=== PATIENT | female | born 1975 | race Two or more races ===

== ENCOUNTER 2022-09-19 14:54 | Outpatient (CLI) | payer OTHER | END 2022-09-19 15:09 | disposition home or self-care (01) | LOC: RAD 14:54 | PROVIDERS: ATTEND Colon & Rectal Surgery | DX: K59.09 Other constipation (principal) ==

== ENCOUNTER → 2022-11-25 11:36 | Outpatient (CLI) | payer OTHER | END | disposition home or self-care (01) | LOC: LAB 11:36 | PROVIDERS: ATTEND Colon & Rectal Surgery | DX: K59.02 Outlet dysfunction constipation (principal); K59.09 Other constipation ==

== ENCOUNTER 2022-11-28 07:00 | Inpatient (IN) | payer OTHER ==
[~2022-11-28] VITALS: Ht 170.2 cm; Wt 77.1 kg
[2022-12-07] MEDS ORDERED: PAIN RELIEF EX500 MG PO (12:32)
[2022-12-07] MEDS ORDERED: NEURONTIN300 MG PO (12:32)
== END 2022-12-07 15:28 | disposition home or self-care (01) | DRG 330 ==
LOC: O/R 12-03 06:20 → SURG 12-03 06:20 → SURH 12-03 07:00 → SURG 12-03 13:51 → SURH 12-03 21:15 → SURG 12-05 13:53
PROVIDERS: ADMIT Colon & Rectal Surgery; ATTEND Colon & Rectal Surgery
PROC: 0DBP4ZZ Excision of Rectum, Percutaneous Endoscopic Approach (ICD-10-PCS; 2022-12-03)
PROC: 0DJD8ZZ Inspection of Lower Intestinal Tract, Via Natural or Artificial Opening Endoscopic (ICD-10-PCS; 2022-12-03)
PROC: 0DTN4ZZ Resection of Sigmoid Colon, Percutaneous Endoscopic Approach (ICD-10-PCS; principal; 2022-12-03 21:15)
DX: K59.02 Outlet dysfunction constipation (principal); K57.20 Diverticulitis of large intestine with perforation and abscess without bleeding

== ENCOUNTER 2023-01-06 12:06 | Emergency (ER) | payer OTHER ==
[~2023-01-06] VITALS: Ht 170.2 cm; Wt 73.0 kg
[~2023-01-06 12:06] MED LIST: NEURONTIN300 MG PO; PAIN RELIEF EX500 MG PO
[2023-01-06] MEDS ORDERED: METRONIDAZOLE500 MG PO (18:12)
== END 2023-01-06 18:40 | disposition home or self-care (01) ==
LOC: ER 12:06
DX: K52.89 Other specified noninfective gastroenteritis and colitis (principal); R10.9 Unspecified abdominal pain; Z88.6 Allergy status to analgesic agent; Z88.8 Allergy status to other drugs, medicaments and biological substances

== ENCOUNTER 2023-02-26 14:08 | Emergency (ER) | payer OTHER ==
[~2023-02-26] VITALS: Ht 170.2 cm; Wt 68.9 kg
[~2023-02-26 14:08] MED LIST changes: +METRONIDAZOLE500 MG PO
== END 2023-02-27 07:23 | disposition home or self-care (01) ==
LOC: ER 14:08
DX: K92.1 Melena (principal); Z88.6 Allergy status to analgesic agent; Z88.8 Allergy status to other drugs, medicaments and biological substances; R53.1 Weakness

== ENCOUNTER 2023-03-04 06:30 | Day surgery (SDC) | payer OTHER | END 2023-03-04 12:55 | disposition home or self-care (01) | LOC: AMB-ENDOS 06:30 | PROVIDERS: ATTEND Colon & Rectal Surgery | DX: K29.60 Other gastritis without bleeding (principal); K62.4 Stenosis of anus and rectum; K44.9 Diaphragmatic hernia without obstruction or gangrene; K59.00 Constipation, unspecified; K59.02 Outlet dysfunction constipation; Z20.822 Contact with and (suspected) exposure to COVID-19; K29.70 Gastritis, unspecified, without bleeding; R19.5 Other fecal abnormalities; Z88.6 Allergy status to analgesic agent ==

== ENCOUNTER 2023-03-31 12:12 | Inpatient (IN) | payer OTHER ==
[~2023-03-31] VITALS: Ht 170.2 cm; Wt 67.6 kg
[2023-04-02] MEDS ORDERED: INTESTINEX680 M1 PO (09:52)
== END 2023-04-02 11:49 | disposition home or self-care (01) | DRG 390 ==
LOC: ER 12:12 → SURH 21:42
PROVIDERS: ADMIT Colon & Rectal Surgery; ATTEND Colon & Rectal Surgery
PROC: 0D7E8ZZ Dilation of Large Intestine, Via Natural or Artificial Opening Endoscopic (ICD-10-PCS; principal; 2023-04-02)
DX: K56.690 Other partial intestinal obstruction (principal); K59.09 Other constipation

== ENCOUNTER 2023-05-12 16:13 | Inpatient (IN) | payer OTHER ==
[~2023-05-12] VITALS: Ht 170.2 cm; Wt 0.5 kg
[~2023-05-12 16:13] MED LIST changes: +INTESTINEX680 M1 PO
--- NOTE | 2023-05-12 16:32 | NUR ---
SE RECIBE PTE FEMENINA DE 47Y ALERTA Y ORIENTADA EN LI OSMIN ESFERAS EN COMPANIA DE [place]. ESTA REFIERE MARIA LUISA TENIDO HX DE CIRUGIA DE COLON EL PASADO 2022. REFIERE QUE EL (COLONRECTAL) LE SHELL REALIZADO DOS DILATACION PORQUE CUANDDO COMIA CA[place] OBSTRUCCION. HACE OSMIN GARCIA SHELL TENIDO VOMITOS, EL ULTIMO VOMITO FUE EL ANTWAN DE SHAMA A LAS 8:00AM. REFIERE TENER DOLOR EN EL CUADRANTE INFERIOR IZQ. SE PALPA ABDOMEN PTE REFIERE DOLOR A LA PALPACION, E HINCHAZON. SE MIDEN S/V Y SE UBICA EN AREA DE OBSERVACION.
--- NOTE | 2023-05-12 17:15 | NUR ---
PTE FEMENINA EVALUADA POR . ELDER RILEY ORIENTA PTE SOBRE ORDENES DE [place] REFIERE COMPRENDER. COLECTA MUESTRAS DE LABORATORIOS Y CANALIZA VENA BAJO MEDIDAS ASEPTICAS. ADMINISTRA MEDICAMENTO, BAJO MEDIDAS ASEPTICAS. NOTIFICA A RADIOLOGIA PARA XRAY.
== END 2023-05-16 14:49 | disposition home or self-care (01) | DRG 394 ==
LOC: ER 16:13 → SURH 19:59
PROVIDERS: General Practice; ADMIT Colon & Rectal Surgery; ATTEND Colon & Rectal Surgery
PROC: BW20ZZZ Computerized Tomography (CT Scan) of Abdomen (ICD-10-PCS; 2023-05-12)
PROC: 0D7P8ZZ Dilation of Rectum, Via Natural or Artificial Opening Endoscopic (ICD-10-PCS; principal; 2023-05-14)
DX: K62.4 Stenosis of anus and rectum (principal); K56.609 Unspecified intestinal obstruction, unspecified as to partial versus complete obstruction; N39.0 Urinary tract infection, site not specified; K59.00 Constipation, unspecified

== ENCOUNTER 2023-05-19 18:26 | Inpatient (IN) | payer OTHER ==
[~2023-05-19] VITALS: Ht 139.7 cm; Wt 81.6 kg
--- NOTE | 2023-05-19 18:42 | NUR ---
PACIENTE ALERTA Y ORIENTADA X3 QUIEN VERBALIZA TENER DESDE LA SEMANA PASADA DOLOR ABDOMINAL EN EL CUADRANTE INFERIOR INEZ. VERBALIZA QUE EL PASADO MIERCOLES LE REALIZARON LEIGHA DILATACION DEL COLON (DR HERNANDEZ) LUEGO DE ESTP ESTUVO VARIOS GARCIA SIN EVACUAR (SHAMA EVACUO POCO). PACIENTE ENVIADA POR DR HERNANDEZ. SE MONITOREAN S/V Y SE UBICA PACIENTE.
--- NOTE | 2023-05-19 20:26 | NUR ---
PTE FEMENINA EVALUADA POR . SE ORIENTA SOBRE ORDEN DE TX REFIERE COMPRENDER. SE COLECTA MUESTRAS DE LABORATORIOS Y SE CANALIZA VENA BAJO MEDIDAS ASEPTICAS. SE ADMINISTRA LIQUIDOS INTRAVENOSOS, APRYL ORDEN EMDICA. SE NOTIFICA A RADIOLOGIA PARA XRAY PENDIENTE.
[2023-05-19 21:01] LABS: HEMATOCRIT 37.7 % (36.0-45.00); HEMOGLOBIN 12.1 g/dL (12.0-15.00); MEAN CELL VOLUME 87.4 fL (80.00-100.00); PLATELET COUNT 399 K/uL (150-450); RED BLOOD COUNT 4.31 M/uL (4.00-6.00); RED CELL DISTRIBUTION WIDTH 15.3 % (11.5-14.5)
--- NOTE | 2023-05-19 21:09 | NUR ---
EVALUA PTE. SE EDUCA A PTE SOBRE TX MEDICO, REFIERE COMPRENDER. SE COLECTAN MUESTRAS DE LABORATORIO BAJO MEDIDAS ASEPTICAS. SE INTENTA CANALIZAR EN VARIAS OCASIONES Y NO SE LOGRA CON EXITO.
[2023-05-21 22:23] LABS: HEMATOCRIT 39.3 % (36.0-45.00); HEMOGLOBIN 12.2 g/dL (12.0-15.00); MEAN CORPUSCULAR HEMOGLOBIN 27.3 pg (27.00-32.0); PLATELET COUNT 405 K/uL (150-450); RED BLOOD COUNT 4.47 M/uL (4.00-6.00); RED CELL DISTRIBUTION WIDTH 15.3 % (11.5-14.5)
[2023-05-22 07:58] LABS: HEMATOCRIT 32.6 % (36.0-45.00); MEAN CELL VOLUME 86.5 fL (80.00-100.00); MEAN CORPUSCULAR HGB CONC 33.1 g/dl (32.0-36.0); PLATELET COUNT 382 K/uL (150-450); RED BLOOD COUNT 3.77 M/uL (4.00-6.00); RED CELL DISTRIBUTION WIDTH 15.5 % (11.5-14.5)
[2023-05-22 08:03] LABS: HEMOGLOBIN 10.8 g/dL (12.0-15.00); MEAN CORPUSCULAR HEMOGLOBIN 28.6 pg (27.00-32.0)
[2023-05-23 07:11] LABS: HEMATOCRIT 31.7 % (36.0-45.00); MEAN CELL VOLUME 87.7 fL (80.00-100.00); MEAN CORPUSCULAR HEMOGLOBIN 27.9 pg (27.00-32.0); MEAN CORPUSCULAR HGB CONC 31.8 g/dl (32.0-36.0); PLATELET COUNT 322 K/uL (150-450); RED BLOOD COUNT 3.62 M/uL (4.00-6.00); RED CELL DISTRIBUTION WIDTH 15.1 % (11.5-14.5)
[2023-05-23 07:37] LABS: HEMOGLOBIN 10.1 g/dL (12.0-15.00)
[2023-05-25 07:45] LABS: HEMATOCRIT 32.8 % (36.0-45.00); HEMOGLOBIN 10.8 g/dL (12.0-15.00); MEAN CELL VOLUME 87.3 fL (80.00-100.00); MEAN CORPUSCULAR HEMOGLOBIN 28.6 pg (27.00-32.0); MEAN CORPUSCULAR HGB CONC 32.8 g/dl (32.0-36.0); PLATELET COUNT 457 K/uL (150-450); RED BLOOD COUNT 3.76 M/uL (4.00-6.00); RED CELL DISTRIBUTION WIDTH 15.3 % (11.5-14.5)
[2023-05-26 06:49] LABS: HEMATOCRIT 29.7 % (36.0-45.00); MEAN CELL VOLUME 86.6 fL (80.00-100.00); MEAN CORPUSCULAR HEMOGLOBIN 29.1 pg (27.00-32.0); MEAN CORPUSCULAR HGB CONC 33.6 g/dl (32.0-36.0); PLATELET COUNT 435 K/uL (150-450); RED BLOOD COUNT 3.43 M/uL (4.00-6.00); RED CELL DISTRIBUTION WIDTH 15.4 % (11.5-14.5)
[2023-05-26] MEDS ORDERED: POLY119PG PO (13:07)
[2023-05-26] MEDS ORDERED: PANTOPRAZOLE SO40 MG PO (13:07)
[2023-05-26] MEDS ORDERED: INTESTINEX680 M1 PO (13:07)
[2023-05-26] MEDS ORDERED: PEPCID AC20 MG PO (13:07)
== END 2023-05-26 14:44 | disposition home or self-care (01) | DRG 330 ==
LOC: ER 18:26 → SURG 21:21
PROVIDERS: General Practice; Internal Medicine Geriatric Medicine; Surgery; ADMIT Colon & Rectal Surgery; ATTEND Colon & Rectal Surgery
PROC: 0DBP4ZZ Excision of Rectum, Percutaneous Endoscopic Approach (ICD-10-PCS; 2023-05-21)
PROC: 0DJD8ZZ Inspection of Lower Intestinal Tract, Via Natural or Artificial Opening Endoscopic (ICD-10-PCS; 2023-05-21)
PROC: 0DTN4ZZ Resection of Sigmoid Colon, Percutaneous Endoscopic Approach (ICD-10-PCS; principal; 2023-05-21 11:15)
DX: K62.4 Stenosis of anus and rectum (principal); N39.0 Urinary tract infection, site not specified; K21.9 Gastro-esophageal reflux disease without esophagitis; D64.9 Anemia, unspecified; Z20.822 Contact with and (suspected) exposure to COVID-19

== ENCOUNTER 2025-02-22 10:41 | Outpatient (CLI) | payer OTHER ==
[~2025-02-22 10:41] MED LIST changes: +PANTOPRAZOLE SO40 MG PO; +PEPCID AC20 MG PO; +POLY119PG PO
== END 2025-02-22 10:51 | disposition home or self-care (01) ==
LOC: RAD 10:41
PROVIDERS: ATTEND Colon & Rectal Surgery
DX: K59.09 Other constipation (principal)